=== PATIENT | male | born 1970 | race Caucasian/White ===

== ENCOUNTER 2021-03-31 21:42 | Emergency (ER) | payer OTHER, SELFPAY ==
[2021-03-31 22:00] VITALS: BP 151/97; PULSE 66; RESP 16; TEMP 36.6; O2SAT 96; BMI 25.9
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
[2021-03-31] MEDS: fluorescein 1 mg Strip EYE-RIGHT (22:26)
[2021-03-31] MEDS: eye irrigation 30 mL Btl EYE-BOTH (22:27)
[2021-03-31] MEDS: tetracaine 0.5% Op Soln 4 mL Btl 1 DROP EYE-RIGHT (22:27)
[2021-03-31] MEDS: neomycin-poly-dex Op oint 3.5 gm 1 APPLIC EYE-RIGHT (23:07)
== END 2021-03-31 23:11 | disposition home or self-care (01) ==
PROVIDERS: Emergency Provider Physician Assistant
DX: T15.91XA Foreign body on external eye, part unspecified, right eye, initial encounter (principal); X58.XXXA Exposure to other specified factors, initial encounter
CPT/HCPCS: 65205; 99283

== ENCOUNTER 2024-06-28 17:05 | Emergency (ER) | payer SELFPAY ==
[2024-06-28 17:15] VITALS: BP 134/90; PULSE 100; RESP 16; TEMP 36.7; O2SAT 96; BMI 23.0
[2024-06-28 17:45] VITALS: BP 143/97; PULSE 110; O2SAT 92
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
[2024-06-28] MEDS: tetanus-dipt-pertussis 0.5 mL SDV IM (18:01)
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
== END 2024-06-28 18:00 | disposition home or self-care (01) ==
PROVIDERS: Emergency Provider Family Medicine; PCP Family Medicine
DX: S51.812A Laceration without foreign body of left forearm, initial encounter (principal); X99.1XXA Assault by knife, initial encounter; Z23 Encounter for immunization
CPT/HCPCS: 12004; 90715; 99283

== ENCOUNTER 2024-08-04 15:45 | Outpatient (CLI) | payer OTHER, SELFPAY ==
--- NOTE | 2024-08-04 15:46 | CT_ITS ---
WS: [id number] LDCT LUNG CANCER SCREENING HISTORY: NICOTINE DEPENDENCE TECHNIQUE: Axial imaging performed from the apices to 1 cm below the costophrenic angles. Coronal and sagittal reformats are submitted with axial MIP series. All CT scans at [facility] use at least one of these dose optimization techniques: automated exposure control; mA and/or kV adjustment per patient size (includes targeted exams where dose is matched to clinical indication); or iterativ e reconstruction. DLP: 62.79 mGy.cm DIvol: Mean CTDIvol: 1.10 (mGy) COMPARISON: None available. Diagnostic quality: Satisfactory Lungs: No pulmonary mass or nodule. No pneumonia. No endobronchial lesions. Heart: Normal size heart with no pericardial effusion.. Other findings: Small mediastinal and hilar lymph nodes. Normal aorta. Normal size pulmonary artery. No adenopathy. CT/CT lung screening [id number] IMPRESSION: LUNG-RADS: 1-Negative FOLLOW UP: 12 Month: Continue annual screening with LDCT OTHER FINDINGS (S MODIFIER): None.
== END 2024-08-04 15:46 | disposition home or self-care (01) ==
PROVIDERS: PCP Family Medicine; Visit Provider Family Medicine
DX: Z12.2 Encounter for screening for malignant neoplasm of respiratory organs (principal)
CPT/HCPCS: 71271

== ENCOUNTER → 2024-08-09 14:07 | Outpatient (BNVA) | payer OTHER, SELFPAY | PROVIDERS: PCP Family Medicine; Visit Provider Nurse Practitioner | DX: M25.522 Pain in left elbow (principal); M70.32 Other bursitis of elbow, left elbow; M70.22 Olecranon bursitis, left elbow | CPT/HCPCS: 73080 ==